=== PATIENT | male | born 1965 | race Caucasian/White ===

== ENCOUNTER 2021-12-25 10:52 | Inpatient (IN) ==
[2021-12-25 12:31] LABS: Alanine Aminotransferase 24 U/L (16-61); Albumin 3.7 G/DL (3.4-5.0); Alkaline Phosphatase 75 U/L (45-117); Aspartate Amino Transferase 12 U/L (0-37); Bilirubin,Total < 0.39 MG/DL (0.20-1.00); Blood Urea Nitrogen 78 MG/DL (7-18); Calcium 9.1 MG/DL (8.5-10.1); Carbon Dioxide 17 MMOL/L (21-32); Chloride 114 MMOL/L (98-107); Glucose 79 MG/DL (74-106); Osmolality,Calculated 298.5 MOS/KG (273-304); Sodium 139 MMOL/L (136-145); Total Protein 7.3 G/DL (6.4-8.2)
[2021-12-25 12:37] LABS: Basophils # 0.1 10*3/uL (0.0-0.2); Basophils % 0.6 % (0.0-0.8); Eosinophils # 0.1 10*3/uL (0.0-0.87); Eosinophils % 1.3 % (0.00-10.9); Hematocrit 43.5 VOL% (42.0-52.0); Hemoglobin 12.9 GM/DL (14.0-18.0); Immature Granulocytes % 0.3 %; Immature Granulocytes Absolute 0.03 #; Lymphocytes # 1.9 10*3/uL (1.4-4.0); Lymphocytes % 18.8 % (21.2-54.2); Mean Corpuscular HGB Conc 29.7 GM/DL (32-36); Mean Platelet Volume 11.6 FL (9.6-12.0); Monocytes # 0.6 10*3/uL (0.11-0.8); Monocytes % 6.2 % (1.7-12.7); Neutrophils % 72.8 % (38.7-73.9); Platelet Count 228 T/CUMM (130-400); Red Blood Count 5.18 MC/CUMM (3.8-5.5); Red Cell Distribution Width 18.6 % (9.3-17.3); White Blood Count 9.9 T/CUMM (4-12)
[2021-12-25 12:41] LABS: Potassium 6.3 MMOL/L (3.5-5.1)
[2021-12-25] MEDS ORDERED: LACTATED RINGERS 1,000 ML IV ONE (12:52)
[2021-12-25] MEDS ORDERED: SODIUM ZIRCONIUM CYCLOSILICATE 10 GM PACK PO SCH (12:53)
[2021-12-25] MEDS ORDERED: ALBUTEROL 2.5 MG/3 ML NEB RESP TX STA (12:53)
[2021-12-25] MEDS ORDERED: ONDANSETRON 4 MG/2 ML VIAL IV PRN (14:18)
[2021-12-25] MEDS ORDERED: GLUCAGON 1 MG VIAL IM PRN (14:18)
[2021-12-25] MEDS ORDERED: INSULIN REGULAR 10 UNIT, CALCIUM GLUCONATE 1,000 MG in DEXTROSE 10% 250 ML IV ONE (14:30)
[2021-12-25] MEDS: SODIUM CHLORIDE 0.9% 1,000 ML IV SCH (14:36)
[2021-12-25] MEDS: HEPARIN 5,000 UNIT/1 ML VIAL SUBCUT SCH ×2 (14:39→21:45)
[2021-12-25 16:53] LABS: Osmolality,Calculated 304.1 MOS/KG (273-304); Potassium 5.7 MMOL/L (3.5-5.1)
[2021-12-25 18:09] LABS: Bacteria,Urine Occasional /HPF (Few); Bilirubin,Urine Negative (Negative); Blood, Urine Large mg/dL (Negative); Glucose,Urine (UA) Negative (Negative); Ketones,Urine Negative (Negative); Mucus,Urine Occasional /LPF (Occasional); Nitrite,Urine Negative (Negative); Protein,Urine Negative (Negative); RBC,Urine 22 /HPF (0-4); Urine Appearance Clear (Clear); Urine Color Yellow (Yellow); Urine Specific Gravity 1.015 (1.001-1.035); Urine Urobilinogen 0.2 eU/dL (<2.0)
[2021-12-25] MEDS ORDERED: ACETAMINOPHEN 325 MG TABLET PO PRN (20:16)
[2021-12-26] MEDS: SODIUM CHLORIDE 0.9% 1,000 ML IV SCH ×5 (00:59→21:39)
[2021-12-26 05:03] LABS: Basophils # 0.1 10*3/uL (0.0-0.2); Basophils % 0.8 % (0.0-0.8); Eosinophils # 0.2 10*3/uL (0.0-0.87); Eosinophils % 2.5 % (0.00-10.9); Hemoglobin 12.2 GM/DL (14.0-18.0); Immature Granulocytes % 0.3 %; Immature Granulocytes Absolute 0.02 #; Lymphocytes # 1.8 10*3/uL (1.4-4.0); Lymphocytes % 24.3 % (21.2-54.2); Mean Corpuscular Volume 85.9 FL (87-102); Mean Platelet Volume 12.8 FL (9.6-12.0); Monocytes # 0.6 10*3/uL (0.11-0.8); Monocytes % 7.8 % (1.7-12.7); Neutrophils % 64.3 % (38.7-73.9); Platelet Count 143 T/CUMM (130-400); Red Cell Distribution Width 18.8 % (9.3-17.3); White Blood Count 7.3 T/CUMM (4-12)
[2021-12-26 05:07] LABS: Hematocrit 42.1 VOL% (42.0-52.0)
[2021-12-26 05:43] LABS: Osmolality,Calculated 297.3 MOS/KG (273-304); Risk Ratio 3.5; Thyroid Stimulating Hormone 1.41 uIU/ml (0.358-3.74); VLDL Cholesterol 28.6 MG/DL
[2021-12-26] MEDS: HEPARIN 5,000 UNIT/1 ML VIAL SUBCUT SCH ×3 (05:48→21:36)
[2021-12-26 05:55] LABS: Potassium 6.2 MMOL/L (3.5-5.1)
[2021-12-26] MEDS ORDERED: INSULIN REGULAR 10 UNIT, CALCIUM GLUCONATE 1,000 MG in DEXTROSE 10% 250 ML IV ONE (06:04)
[2021-12-26] MEDS: PANTOPRAZOLE 40 MG TABLET PO SCH (08:39)
[2021-12-26] MEDS ORDERED: DEXTROSE 50% 25 GM/50 ML VIAL IV ONE (11:55)
[2021-12-26] MEDS ORDERED: INSULIN REGULAR 100 UNIT/ML IV ONE (11:55)
[2021-12-26] MEDS ORDERED: CALCIUM GLUCONATE RIDER 1,000 MG/50 ML PREMIX IV ONE (11:55)
[2021-12-26] MEDS: DEXTROSE 10% 250 ML BAG IV PRN ×2 (13:57→15:58)
[2021-12-26] MEDS: SODIUM ZIRCONIUM CYCLOSILICATE 10 GM PACK PO SCH ×2 (14:31→20:29)
[2021-12-26] MEDS ORDERED: SODIUM POLYSTYRENE SULFATE 15 GM/60 ML BOTTLE PO ONE (17:21)
[2021-12-27] MEDS: SODIUM CHLORIDE 0.9% 1,000 ML IV SCH ×2 (05:29→05:36)
[2021-12-27] MEDS: HEPARIN 5,000 UNIT/1 ML VIAL SUBCUT SCH ×3 (05:32→22:57)
[2021-12-27 07:11] LABS: Osmolality,Calculated 300.4 MOS/KG (273-304); Potassium 5.6 MMOL/L (3.5-5.1)
[2021-12-27 07:14] LABS: Basophils # 0.1 10*3/uL (0.0-0.2); Basophils % 0.9 % (0.0-0.8); Eosinophils # 0.2 10*3/uL (0.0-0.87); Eosinophils % 3.5 % (0.00-10.9); Hematocrit 40.9 VOL% (42.0-52.0); Immature Granulocytes % 0.3 %; Immature Granulocytes Absolute 0.02 #; Mean Corpuscular HGB Conc 29.6 GM/DL (32-36); Mean Corpuscular Volume 85.7 FL (87-102); Mean Platelet Volume 12.4 FL (9.6-12.0); Monocytes # 0.6 10*3/uL (0.11-0.8); Monocytes % 8.2 % (1.7-12.7); Neutrophils % 58.1 % (38.7-73.9); Platelet Count 167 T/CUMM (130-400); Red Blood Count 4.77 MC/CUMM (3.8-5.5); Red Cell Distribution Width 18.6 % (9.3-17.3); White Blood Count 6.9 T/CUMM (4-12)
[2021-12-27 07:15] LABS: Hemoglobin 12.1 GM/DL (14.0-18.0)
[2021-12-27] MEDS: PANTOPRAZOLE 40 MG TABLET PO SCH (08:49)
[2021-12-27] MEDS: SODIUM ZIRCONIUM CYCLOSILICATE 10 GM PACK PO SCH ×3 (08:50→20:59)
[2021-12-27] MEDS: DEXTROSE 5% NACL 0.45% 1,000 ML IV SCH ×2 (08:57→23:04)
[2021-12-27] MEDS ORDERED: SODIUM POLYSTYRENE SULFATE 15 GM/60 ML BOTTLE PO ONE (09:00)
[2021-12-27 13:35] LABS: Calcium 8.8 MG/DL (8.5-10.1); Potassium 4.9 MMOL/L (3.5-5.1)
[2021-12-28 06:03] LABS: Calcium 8.6 MG/DL (8.5-10.1); Osmolality,Calculated 292.7 MOS/KG (273-304); Potassium 4.7 MMOL/L (3.5-5.1)
[2021-12-28] MEDS: HEPARIN 5,000 UNIT/1 ML VIAL SUBCUT SCH (06:14)
[2021-12-28] MEDS: PANTOPRAZOLE 40 MG TABLET PO SCH (08:12)
[2021-12-28] MEDS: SODIUM ZIRCONIUM CYCLOSILICATE 10 GM PACK PO SCH (08:12)
[2021-12-28 08:16] VITALS: BP 151/80
== END 2021-12-28 09:21 | disposition home or self-care (01) | DRG 683 ==
LOC: N.ED 10:52 → SUATTDRO 14:18 → N.EDINP 14:18 → N.TELES 15:07
PROVIDERS: ADMIT Internal Medicine; ATTEND Internal Medicine